=== PATIENT | male | born 1935 | race Hispanic/Latino ===

== ENCOUNTER 2018-10-25 10:16 | Outpatient (CLI) | payer MEDICARE ==
[2018-10-25 10:52] LABS: Anion Gap 19 mmol/L (10-20); BUN (Urea Nitrogen) 73 mg/dL (8.4-25.7); Calc. Creatinine Clearance 0 mL/min (70-130); Calcium 8.8 mg/dL (7.8-10.44); Carbon Dioxide 19 mmol/L (23-31); Chloride 104 mmol/L (98-107); Estimated GFR-MDRD 14; Glucose 113 mg/dL (83-110); Potassium 4.4 mmol/L (3.5-5.1); Sodium 138 mmol/L (136-145)
[2018-10-25 10:53] LABS: Bilirubin Negative (Negative); Blood, Urine Negative (Negative); Glucose, Urine (Dipstick) Negative (Negative); Leukocyte Negative (Negative); Nitrite Negative (Negative); Protein, Urine (Dipstick) 30 mg/dL (Neg-Trace); Urobilinogen 0.2 mg/dL (Less than 2)
[2018-10-25 10:59] LABS: Clarity Hazy (Clear)
[2018-10-25 11:00] LABS: Bacteria/HPF 1+ HPF (None Seen); RBC/HPF 0-3 HPF (0-3); Squamous Epithelial 0-3 HPF (0-3); WBC/HPF 0-3 HPF (0-3)
== END 2018-10-25 10:17 | disposition home or self-care (01) ==
LOC: MADLAB 10:16
PROVIDERS: ATTEND Family Medicine
DX: I50.9 Heart failure, unspecified (principal)
CPT/HCPCS: 80048; 81001; 87086

== ENCOUNTER 2018-10-31 15:27 | Inpatient (IN) | payer MEDICARE ==
[2018-10-31] MEDS ORDERED: cefTRIAXone\\ROCEPHIN 2 GM VIAL IVPB SCH (17:15)
[2018-10-31] MEDS: Senokot S 8.6-50 MG TAB PO SCH (21:27)
[2018-10-31] MEDS: Amiodarone 200 MG TAB PO SCH (21:27)
[2018-10-31] MEDS: Sucralfate 1 GM TAB PO SCH (21:27)
[2018-10-31] MEDS: Nystatin 500,000 UNITS/5 ML UDCUP SSW SCH (21:28)
[2018-10-31] MEDS: Apixaban 5 MG TAB PO SCH (21:28)
--- NOTE | 2018-11-01 00:38 | HP ---
PRIMARY CARE PHYSICIAN: Dr. Kristina Ennis. REASON FOR ADMISSION: For long time IV antibiotic and skilled rehabilitation secondary to bacteremia and new onset CHF with atrial fibrillation. HISTORY OF PRESENT ILLNESS: Mr. Cr Powell is an 83-year-old male who presented to the emergency room on the secondary to severe back pain. The patient had recently been discharged from the hospital due to a new onset CHF and atrial fibrillation on the . On admission, he was noted to have bandemia with elevated creatinine. He had blood cultures positive for methicillin sensitive Staph aureus. He was initially seen by ID specialist, Dr. Lucas, who put him on vancomycin and was subsequently transitioned to Rocephin [address] Lucas recommended IV Rocephin to be taking through 12/08. The patient had an extensive workup to look for primary focus including lumbar spine CT and echocardiogram, which were all unrevealing of the primary focus. The patient did have an Matos catheter placed for long-term IV antibiotics. His creatinine initially was 4.3, but dropped down by day of discharge to 3.43. He does have a history of anemia, and his hemoglobin was 8.2 by day of discharge, and hematocrit 25.7. The patient due to long-term antibiotic and physical deconditioning, was subsequently transferred to [facility] [place] for physical therapy. Upon evaluation of the patient today, he complains of back pain. will be staying with him throughout the visit due to language barrier. The patient and noted white streaking on his tongue and some cuts on his tongue and the patient complaining of dryness to his mouth today. He denies any chest pain. Denies any shortness of breath. Denies any nausea or vomiting. states he does have a history of chronic vomiting and this has been ongoing, but the sucralfate does help with this. The patient will follow up as an outpatient with building performance specialist, Dr. Moran and language instructor, Dr. Zee. PAST MEDICAL HISTORY: Hypertension, chronic kidney disease, systolic heart failure, atrial flutter status post WENDY cardioversion, gastritis. CODE STATUS: Full code. PAST SURGICAL HISTORY: Pacemaker placement. FAMILY HISTORY: Diabetes and hypertension. SOCIAL HISTORY: No tobacco, alcohol, or illicit drug use. The patient leaves to home with his , Karina who is his surrogate decision maker. ALLERGIES: NONE. CURRENT MEDICATIONS: 1. Amiodarone 200 b.i.d. 2. Coreg 12.5 b.i.d. 3. Aspirin 81 mg daily. 4. Eliquis 2.5 p.o. b.i.d. 5. Protonix 40 daily. 6. Lasix 20 b.i.d. 7. Rocephin 2 g IV piggyback daily through 12/08. 8. Sucralfate 1 g four times a day. 9. Senokot S one tablet b.i.d. REVIEW OF SYSTEMS: GENERAL: The patient denies any fever, nausea, or vomiting. Complains of weakness and lower back pain. HEENT: No nosebleeds. Complains of oral pain and white streaking to his tongue. CHEST: Denies chest pain, shortness of breath, palpitation, or dizziness. RESPIRATORY: Denies cough or wheezing. ABDOMEN: Denies abdominal pain or nausea. Positive for vomiting. Denies diarrhea. GENITOURINARY: Denies dysuria or hematuria. SKIN: Denies any blisters, sores, or rashes. NEUROLOGICAL: No focal deficits. PSYCH: Denies anxiety or depression. MUSCULOSKELETAL: Complains of lower back pain, gait instability. PHYSICAL EXAMINATION: VITAL SIGNS: Temperature 96.3, pulse 75, respirations 22, O2 saturation on room air 97, blood pressure 149/67. GENERAL: The patient is a very pleasant 83-year-old male, alert, awake, oriented x3. Cooperative, age appropriate. HEENT: PERRL. Poor dentition throughout. White plaques on his tongue. NECK: Supple. Symmetric. No lymphadenopathy. No JVD. No bruits. HEART: Regular rate and rhythm without murmurs, gallops, or rubs. Pacemaker site looks healthy. LUNGS: Clear to auscultation bilaterally. Good air expansion. ABDOMEN: Positive bowel sounds. Soft, nontender, nondistended. EXTREMITIES: No cyanosis, clubbing, or edema. SKIN: No additional open lesions. ASSESSMENT: 1. Bacteremia with methicillin-susceptible Staphylococcus aureus. 2. Physical debility. 3. Acute renal failure on chronic kidney disease stage 4. 4. Normocytic anemia. 5. Acute systolic heart failure with EF of 30% to 35%. 6. Atrial fibrillation, status post WENDY cardioversion. 7. Gastritis. 8. Hypertension. 9. Oral Candidiasis PLAN: The patient has been admitted to [facility] for skilled rehabilitation and gait strengthening and also for long-term IV antibiotic. We will continue Rocephin 2 g daily until 12/08, at the recommendation of ID specialist , Dr. Lucas. We will monitor CBC and BMP profile on a periodic basis. We will go schedule followup appointments with building performance specialist and language instructor as planned. We will monitor the patient closely for any hemodynamic instability. We will resume pain medicines with [place] and Tylenol as needed. We will start nystatin moldovan and spit for [address] the patient on Protonix for GI prophylaxis and he is already on Eliquis for anticoagulation. ESTIMATED LENGTH OF STAY: 4-5 weeks. DISPOSITION: Home. Job ID: [id number] MTDD
[2018-11-01] MEDS: HYDROcodone/Acetaminophen 10/325 mg Tablet PO PRN ×2 (02:15→09:38)
[2018-11-01 04:59] LABS: #Basophils 0.1 thou/uL (0.0-0.2); #Eosinphils 0.1 thou/uL (0.0-0.7); #Lymphocytes 0.9 thou/uL (1.20-3.40); #Monocytes 0.6 thou/uL (0.11-0.59); #Neutrophils 9.4 thou/uL (1.40-6.50); %Basophils 0.5 % (0.0-1.0); %Eosinophils 0.7 % (0.0-10.0); %Monocytes 5.5 % (0.0-10.0); %Neutrophils 85.3 % (42.0-75.0); Hemoglobin 8.1 g/dL (14.0-18.0); Mean Corpuscular HGB CONC 33.1 g/dL (32.0-36.0); Mean Corpuscular Hemoglobin 31.3 pg (27.0-31.0); Mean Corpuscular Volume 94.6 fL (78.0-98.0); Mean Platelet Volume 5.9 fL (7.4-10.4); Platelet Count 244 thou/uL (130-400); RBC Distribution Width 16.2 % (11.5-14.5); Red Blood Cell (RBC) Count 2.58 mill/uL (4.70-6.10); White Blood Cell (WBC) Count 11.1 thou/uL (4.8-10.8)
[2018-11-01 05:18] LABS: Anion Gap 16 mmol/L (10-20); BUN (Urea Nitrogen) 76 mg/dL (8.4-25.7); Calc. Creatinine Clearance 16 mL/min (70-130); Calcium 9.5 mg/dL (7.8-10.44); Carbon Dioxide 20 mmol/L (23-31); Chloride 108 mmol/L (98-107); Estimated GFR-MDRD 18; Glucose 108 mg/dL (83-110); Potassium 4.7 mmol/L (3.5-5.1); Sodium 139 mmol/L (136-145)
[2018-11-01] MEDS: Nystatin 500,000 UNITS/5 ML UDCUP SSW SCH ×4 (08:30→20:34)
[2018-11-01] MEDS: Senokot S 8.6-50 MG TAB PO SCH ×2 (08:30→20:34)
[2018-11-01] MEDS: Amiodarone 200 MG TAB PO SCH ×2 (08:30→20:33)
[2018-11-01] MEDS: Furosemide 20 MG TAB PO SCH ×2 (08:30→13:14)
[2018-11-01] MEDS: Carvedilol 6.25 MG TAB PO SCH ×2 (08:30→17:11)
[2018-11-01] MEDS: Sucralfate 1 GM TAB PO SCH ×4 (08:30→20:35)
[2018-11-01] MEDS: Apixaban 5 MG TAB PO SCH ×2 (08:30→20:34)
[2018-11-01] MEDS: Aspirin 81 mg Enteric Coated Tablet PO SCH (08:30)
[2018-11-01] MEDS ORDERED: Non-Formulary Item 1 EACH (Multivit-Min/Folic/Vit K/Lycop [Men's Multivitamin Tablet] 1 E PO SCH (09:00)
[2018-11-01] MEDS ORDERED: Multivitamin W/ Minerals 1 TAB PO SCH (09:30)
[2018-11-01] MEDS: cefTRIAXone\\ROCEPHIN 2 GM in Sodium Chloride 0.9% 100 ML IVPB SCH (11:21)
[2018-11-01] MEDS ORDERED: MINERAL OIL PO PRN ×2 (16:18→17:15)
[2018-11-01] MEDS: Ferrous Sulfate 325 MG TAB PO SCH (17:11)
[2018-11-01] MEDS: Ondansetron ODT 4 MG TAB PO PRN (23:48)
[2018-11-02] MEDS: HYDROcodone/Acetaminophen 10/325 mg Tablet PO PRN ×3 (06:21→21:23)
[2018-11-02] MEDS: Acetaminophen 325 MG TAB PO PRN (08:40)
[2018-11-02] MEDS: Nystatin 500,000 UNITS/5 ML UDCUP SSW SCH ×4 (08:41→21:15)
[2018-11-02] MEDS: Senokot S 8.6-50 MG TAB PO SCH ×2 (08:41→21:15)
[2018-11-02] MEDS: Ferrous Sulfate 325 MG TAB PO SCH ×2 (08:41→17:06)
[2018-11-02] MEDS: Furosemide 20 MG TAB PO SCH ×2 (08:41→13:11)
[2018-11-02] MEDS: Multivitamin W/ Minerals 1 TAB PO SCH (08:41)
[2018-11-02] MEDS: Aspirin 81 mg Enteric Coated Tablet PO SCH (08:41)
[2018-11-02] MEDS: Carvedilol 6.25 MG TAB PO SCH ×2 (08:41→17:06)
[2018-11-02] MEDS: Amiodarone 200 MG TAB PO SCH ×2 (08:42→21:14)
[2018-11-02] MEDS: Apixaban 5 MG TAB PO SCH ×2 (08:42→21:14)
[2018-11-02] MEDS: Sucralfate 1 GM TAB PO SCH ×4 (08:42→21:15)
[2018-11-02] MEDS: cefTRIAXone\\ROCEPHIN 2 GM in Sodium Chloride 0.9% 100 ML IVPB SCH (11:08)
[2018-11-02] MEDS: MINERAL OIL PO SCH (11:14)
[2018-11-02] MEDS ORDERED: Bisacodyl 10 MG SUPP PR SCH (16:15)
[2018-11-02] MEDS ORDERED: Fleet Enema 133 ML BOT FS PRN (17:44)
--- NOTE | 2018-11-02 19:33 | RAD ---
SUPINE ABDOMEN: 11/02/18 HISTORY: Constipation. Large amount of stool throughout the colon is consistent with a history of constipation. Nonspecific small bowel gas is seen without evidence of small bowel dilatation or obstruction. No mass effect or abnormal calcification. IMPRESSION: Prominent stool throughout the colon consistent with history of constipation. POS: NATHAN
[2018-11-03] MEDS: Ondansetron ODT 4 MG TAB PO PRN ×3 (00:09→20:19)
[2018-11-03] MEDS: HYDROcodone/Acetaminophen 10/325 mg Tablet PO PRN (06:18)
[2018-11-03] MEDS: Sucralfate 1 GM TAB PO SCH ×4 (07:25→21:00)
[2018-11-03] MEDS: Ferrous Sulfate 325 MG TAB PO SCH ×2 (08:35→16:45)
[2018-11-03] MEDS: Apixaban 5 MG TAB PO SCH ×2 (08:35→20:24)
[2018-11-03] MEDS: Nystatin 500,000 UNITS/5 ML UDCUP SSW SCH ×4 (08:35→20:15)
[2018-11-03] MEDS: Multivitamin W/ Minerals 1 TAB PO SCH (08:36)
[2018-11-03] MEDS: Furosemide 20 MG TAB PO SCH ×2 (08:36→13:48)
[2018-11-03] MEDS: Carvedilol 6.25 MG TAB PO SCH ×2 (08:36→16:44)
[2018-11-03] MEDS: Senokot S 8.6-50 MG TAB PO SCH ×2 (08:36→20:24)
[2018-11-03] MEDS: Aspirin 81 mg Enteric Coated Tablet PO SCH (08:37)
[2018-11-03] MEDS: Amiodarone 200 MG TAB PO SCH ×2 (08:37→20:23)
[2018-11-03] MEDS: cefTRIAXone\\ROCEPHIN 2 GM in Sodium Chloride 0.9% 100 ML IVPB SCH (11:25)
[2018-11-03] MEDS: Acetaminophen 325 MG TAB PO PRN (13:51)
[2018-11-03] MEDS: MINERAL OIL PO SCH (13:51)
[2018-11-04] MEDS: HYDROcodone/Acetaminophen 10/325 mg Tablet PO PRN ×2 (00:18→11:28)
[2018-11-04] MEDS: Acetaminophen 325 MG TAB PO PRN (05:24)
[2018-11-04] MEDS: Sucralfate 1 GM TAB PO SCH ×5 (08:40→20:16)
[2018-11-04] MEDS: Amiodarone 200 MG TAB PO SCH ×2 (08:40→20:12)
[2018-11-04] MEDS: Carvedilol 6.25 MG TAB PO SCH ×2 (08:40→17:11)
[2018-11-04] MEDS: Multivitamin W/ Minerals 1 TAB PO SCH (08:40)
[2018-11-04] MEDS: Aspirin 81 mg Enteric Coated Tablet PO SCH (08:40)
[2018-11-04] MEDS: Senokot S 8.6-50 MG TAB PO SCH ×2 (08:40→20:12)
[2018-11-04] MEDS: Apixaban 5 MG TAB PO SCH ×2 (08:40→20:13)
[2018-11-04] MEDS: Furosemide 20 MG TAB PO SCH ×2 (08:40→14:36)
[2018-11-04] MEDS: Ferrous Sulfate 325 MG TAB PO SCH ×2 (08:41→17:11)
[2018-11-04] MEDS: cefTRIAXone\\ROCEPHIN 2 GM in Sodium Chloride 0.9% 100 ML IVPB SCH (10:47)
[2018-11-04] MEDS: Ondansetron ODT 4 MG TAB PO PRN (12:21)
[2018-11-05] MEDS: HYDROcodone/Acetaminophen 10/325 mg Tablet PO PRN ×4 (01:27→21:43)
[2018-11-05] MEDS: Carvedilol 6.25 MG TAB PO SCH ×2 (08:13→17:15)
[2018-11-05] MEDS: Ferrous Sulfate 325 MG TAB PO SCH ×2 (08:13→17:14)
[2018-11-05] MEDS: Apixaban 5 MG TAB PO SCH ×2 (08:14→20:15)
[2018-11-05] MEDS: Sucralfate 1 GM TAB PO SCH ×4 (08:15→20:15)
[2018-11-05] MEDS: Aspirin 81 mg Enteric Coated Tablet PO SCH (08:16)
[2018-11-05] MEDS: Multivitamin W/ Minerals 1 TAB PO SCH (08:16)
[2018-11-05] MEDS: Furosemide 20 MG TAB PO SCH ×2 (08:16→14:04)
[2018-11-05] MEDS: Amiodarone 200 MG TAB PO SCH ×2 (08:16→20:15)
[2018-11-05] MEDS: Senokot S 8.6-50 MG TAB PO SCH ×2 (08:16→20:15)
[2018-11-05] MEDS: cefTRIAXone\\ROCEPHIN 2 GM in Sodium Chloride 0.9% 100 ML IVPB SCH (10:35)
[2018-11-05] MEDS: Ondansetron ODT 4 MG TAB PO PRN (12:11)
[2018-11-06] MEDS: Sucralfate 1 GM TAB PO SCH ×4 (07:52→20:49)
[2018-11-06] MEDS: Ferrous Sulfate 325 MG TAB PO SCH ×2 (08:42→16:59)
[2018-11-06] MEDS: Carvedilol 6.25 MG TAB PO SCH ×2 (08:42→16:59)
[2018-11-06] MEDS: Aspirin 81 mg Enteric Coated Tablet PO SCH (08:43)
[2018-11-06] MEDS: Furosemide 20 MG TAB PO SCH ×2 (08:43→13:35)
[2018-11-06] MEDS: Amiodarone 200 MG TAB PO SCH ×2 (08:43→20:50)
[2018-11-06] MEDS: Multivitamin W/ Minerals 1 TAB PO SCH (08:43)
[2018-11-06] MEDS: Apixaban 5 MG TAB PO SCH ×2 (08:43→20:50)
[2018-11-06] MEDS: Senokot S 8.6-50 MG TAB PO SCH ×2 (08:44→20:56)
[2018-11-06] MEDS: HYDROcodone/Acetaminophen 10/325 mg Tablet PO PRN ×3 (08:48→20:50)
[2018-11-06] MEDS: cefTRIAXone\\ROCEPHIN 2 GM in Sodium Chloride 0.9% 100 ML IVPB SCH (11:23)
[2018-11-06] MEDS: Ondansetron ODT 4 MG TAB PO PRN ×2 (13:35→20:50)
[2018-11-06] MEDS ORDERED: Polyethylene Glycol 3350 17 GM Packet PO SCH (14:15)
[2018-11-06 14:49] LABS: Bilirubin Negative (Negative); Blood, Urine Negative (Negative); Glucose, Urine (Dipstick) Negative (Negative); Leukocyte Negative (Negative); Nitrite Negative (Negative); Protein, Urine (Dipstick) 30 mg/dL (Neg-Trace); Urobilinogen 0.2 mg/dL (Less than 2)
[2018-11-06 14:52] LABS: Clarity Hazy (Clear)
[2018-11-06 14:53] LABS: Bacteria/HPF Rare-Few HPF (None Seen); RBC/HPF 0-3 HPF (0-3); Squamous Epithelial 0-3 HPF (0-3); Urine Culture Reflex No No; WBC/HPF 0-3 HPF (0-3)
[2018-11-06] MEDS ORDERED: Fleet Enema 133 ML BOT PR PRN (18:49)
--- NOTE | 2018-11-06 19:26 | RAD ---
SUPINE PORTABLE AP ABDOMINAL RADIOGRAPH: HISTORY: Fecal impaction. COMPARISON: 11/02/2018 FINDINGS: A large amount of retained fecal material is again seen within the colon, greatest in the region of t he rectum. Findings are similar to the prior exam. No definitive dilated loops of small bowel are s een. Vascular calcifications are seen. Degenerative changes are again noted in the spine. Upper ab domen and lung bases are excluded from view. IMPRESSION: Large amount of retained fecal material seen throughout the colon, consistent with the patient's hist ory of constipation. The findings are similar to the prior examination. POS: GREGORY
[2018-11-07] MEDS: Sucralfate 1 GM TAB PO SCH ×4 (08:33→20:36)
[2018-11-07] MEDS: Polyethylene Glycol 3350 17 GM Packet PO SCH (08:33)
[2018-11-07] MEDS: Apixaban 5 MG TAB PO SCH ×2 (08:33→20:35)
[2018-11-07] MEDS: Carvedilol 6.25 MG TAB PO SCH ×2 (08:33→16:58)
[2018-11-07] MEDS: Multivitamin W/ Minerals 1 TAB PO SCH (08:33)
[2018-11-07] MEDS: Ferrous Sulfate 325 MG TAB PO SCH ×2 (08:33→16:58)
[2018-11-07] MEDS: Furosemide 20 MG TAB PO SCH ×2 (08:33→13:52)
[2018-11-07] MEDS: Senokot S 8.6-50 MG TAB PO SCH ×2 (08:33→20:36)
[2018-11-07] MEDS: Aspirin 81 mg Enteric Coated Tablet PO SCH (08:34)
[2018-11-07] MEDS: Amiodarone 200 MG TAB PO SCH ×2 (08:34→20:35)
[2018-11-07] MEDS: cefTRIAXone\\ROCEPHIN 2 GM in Sodium Chloride 0.9% 100 ML IVPB SCH (11:01)
[2018-11-07] MEDS: Acetaminophen 325 MG TAB PO PRN (12:52)
[2018-11-07 12:55] LABS: #Basophils 0.1 thou/uL (0.0-0.2); #Eosinphils 0.1 thou/uL (0.0-0.7); #Lymphocytes 0.8 thou/uL (1.20-3.40); #Monocytes 0.5 thou/uL (0.11-0.59); #Neutrophils 6.7 thou/uL (1.40-6.50); %Eosinophils 0.9 % (0.0-10.0); %Lymphocytes 9.8 % (21.0-51.0); %Monocytes 6.3 % (0.0-10.0); Hemoglobin 9.2 g/dL (14.0-18.0); Mean Corpuscular HGB CONC 31.5 g/dL (32.0-36.0); Mean Corpuscular Hemoglobin 29.6 pg (27.0-31.0); Mean Corpuscular Volume 93.8 fL (78.0-98.0); Mean Platelet Volume 4.8 fL (7.4-10.4); Platelet Count 361 thou/uL (130-400); RBC Distribution Width 15.1 % (11.5-14.5); Red Blood Cell (RBC) Count 3.11 mill/uL (4.70-6.10); White Blood Cell (WBC) Count 8.2 thou/uL (4.8-10.8)
[2018-11-07 13:46] LABS: Anion Gap 18 mmol/L (10-20); BUN (Urea Nitrogen) 65 mg/dL (8.4-25.7); Calc. Creatinine Clearance 15 mL/min (70-130); Calcium 9.9 mg/dL (7.8-10.44); Carbon Dioxide 29 mmol/L (23-31); Chloride 94 mmol/L (98-107); Estimated GFR-MDRD 19; Glucose 151 mg/dL (83-110); Potassium 4.4 mmol/L (3.5-5.1); Sodium 137 mmol/L (136-145)
[2018-11-07] MEDS ORDERED: Fleet Enema 133 ML BOT PR SCH (19:00)
[2018-11-07] MEDS: Ondansetron ODT 4 MG TAB PO PRN (19:59)
[2018-11-07] MEDS: HYDROcodone/Acetaminophen 10/325 mg Tablet PO PRN (23:47)
[2018-11-08] MEDS: Ferrous Sulfate 325 MG TAB PO SCH ×2 (08:21→16:45)
[2018-11-08] MEDS: Furosemide 20 MG TAB PO SCH ×2 (08:21→14:27)
[2018-11-08] MEDS: Multivitamin W/ Minerals 1 TAB PO SCH (08:21)
[2018-11-08] MEDS: Apixaban 5 MG TAB PO SCH ×2 (08:21→20:40)
[2018-11-08] MEDS: Sucralfate 1 GM TAB PO SCH ×4 (08:21→20:41)
[2018-11-08] MEDS: Carvedilol 6.25 MG TAB PO SCH ×2 (08:21→16:45)
[2018-11-08] MEDS: Aspirin 81 mg Enteric Coated Tablet PO SCH (08:21)
[2018-11-08] MEDS: Amiodarone 200 MG TAB PO SCH ×2 (08:21→20:40)
[2018-11-08] MEDS: Senokot S 8.6-50 MG TAB PO SCH ×2 (08:21→20:41)
[2018-11-08] MEDS: Polyethylene Glycol 3350 17 GM Packet PO SCH (08:22)
[2018-11-08] MEDS: cefTRIAXone\\ROCEPHIN 2 GM in Sodium Chloride 0.9% 100 ML IVPB SCH (11:20)
[2018-11-08] MEDS: Acetaminophen 325 MG TAB PO PRN ×2 (11:24→19:50)
[2018-11-09] MEDS: Acetaminophen 325 MG TAB PO PRN (01:34)
[2018-11-09] MEDS: Apixaban 5 MG TAB PO SCH ×2 (08:19→21:41)
[2018-11-09] MEDS: Aspirin 81 mg Enteric Coated Tablet PO SCH (08:19)
[2018-11-09] MEDS: Multivitamin W/ Minerals 1 TAB PO SCH (08:19)
[2018-11-09] MEDS: Amiodarone 200 MG TAB PO SCH ×2 (08:19→21:42)
[2018-11-09] MEDS: Sucralfate 1 GM TAB PO SCH ×4 (08:19→21:42)
[2018-11-09] MEDS: Furosemide 20 MG TAB PO SCH ×2 (08:20→13:03)
[2018-11-09] MEDS: Ferrous Sulfate 325 MG TAB PO SCH ×3 (08:20→17:44)
[2018-11-09] MEDS: Carvedilol 6.25 MG TAB PO SCH ×2 (08:20→17:44)
[2018-11-09] MEDS: Polyethylene Glycol 3350 17 GM Packet PO SCH (08:21)
[2018-11-09] MEDS: Senokot S 8.6-50 MG TAB PO SCH (08:21)
[2018-11-09] MEDS: cefTRIAXone\\ROCEPHIN 2 GM in Sodium Chloride 0.9% 100 ML IVPB SCH (08:22)
[2018-11-09] MEDS: HYDROcodone/Acetaminophen 10/325 mg Tablet PO PRN ×3 (09:08→21:44)
[2018-11-09] MEDS: Ondansetron ODT 4 MG TAB PO PRN (14:11)
[2018-11-10] MEDS: Acetaminophen 325 MG TAB PO PRN ×2 (05:55→21:58)
[2018-11-10] MEDS: Sucralfate 1 GM TAB PO SCH ×4 (07:57→21:58)
[2018-11-10] MEDS: Ferrous Sulfate 325 MG TAB PO SCH ×2 (07:57→17:43)
[2018-11-10] MEDS: Carvedilol 6.25 MG TAB PO SCH ×2 (07:57→17:43)
[2018-11-10] MEDS: Aspirin 81 mg Enteric Coated Tablet PO SCH (09:00)
[2018-11-10] MEDS: Apixaban 5 MG TAB PO SCH ×2 (09:00→21:58)
[2018-11-10] MEDS: Multivitamin W/ Minerals 1 TAB PO SCH (09:00)
[2018-11-10] MEDS: Amiodarone 200 MG TAB PO SCH ×2 (09:00→21:58)
[2018-11-10] MEDS: Furosemide 20 MG TAB PO SCH (09:00)
[2018-11-10] MEDS: Polyethylene Glycol 3350 17 GM Packet PO SCH (09:01)
[2018-11-10] MEDS: HYDROcodone/Acetaminophen 10/325 mg Tablet PO PRN ×2 (10:25→17:45)
[2018-11-10] MEDS: cefTRIAXone\\ROCEPHIN 2 GM in Sodium Chloride 0.9% 100 ML IVPB SCH (10:26)
[2018-11-11] MEDS: Aspirin 81 mg Enteric Coated Tablet PO SCH (08:26)
[2018-11-11] MEDS: Carvedilol 6.25 MG TAB PO SCH ×2 (08:26→16:47)
[2018-11-11] MEDS: Amiodarone 200 MG TAB PO SCH ×2 (08:26→21:14)
[2018-11-11] MEDS: Multivitamin W/ Minerals 1 TAB PO SCH (08:27)
[2018-11-11] MEDS: Apixaban 5 MG TAB PO SCH ×2 (08:27→21:12)
[2018-11-11] MEDS: Sucralfate 1 GM TAB PO SCH ×4 (08:27→21:11)
[2018-11-11] MEDS: Ferrous Sulfate 325 MG TAB PO SCH ×2 (08:27→16:47)
[2018-11-11] MEDS: Furosemide 20 MG TAB PO SCH (08:27)
[2018-11-11] MEDS: Polyethylene Glycol 3350 17 GM Packet PO SCH (08:28)
[2018-11-11] MEDS: HYDROcodone/Acetaminophen 10/325 mg Tablet PO PRN (08:33)
[2018-11-11] MEDS: cefTRIAXone\\ROCEPHIN 2 GM in Sodium Chloride 0.9% 100 ML IVPB SCH (11:22)
[2018-11-11] MEDS: Senokot S 8.6-50 MG TAB PO PRN (15:27)
[2018-11-11] MEDS: Acetaminophen 325 MG TAB PO PRN (21:13)
[2018-11-12] MEDS: HYDROcodone/Acetaminophen 10/325 mg Tablet PO PRN ×2 (06:17→10:11)
[2018-11-12] MEDS: Ferrous Sulfate 325 MG TAB PO SCH ×2 (07:52→16:57)
[2018-11-12] MEDS: Amiodarone 200 MG TAB PO SCH ×2 (07:52→20:54)
[2018-11-12] MEDS: Multivitamin W/ Minerals 1 TAB PO SCH (07:52)
[2018-11-12] MEDS: Polyethylene Glycol 3350 17 GM Packet PO SCH (07:52)
[2018-11-12] MEDS: Furosemide 20 MG TAB PO SCH (07:53)
[2018-11-12] MEDS: Sucralfate 1 GM TAB PO SCH ×4 (07:53→20:55)
[2018-11-12] MEDS: Carvedilol 6.25 MG TAB PO SCH ×2 (07:53→16:57)
[2018-11-12] MEDS: Aspirin 81 mg Enteric Coated Tablet PO SCH (07:53)
[2018-11-12] MEDS: Apixaban 5 MG TAB PO SCH ×2 (07:55→20:54)
[2018-11-12] MEDS: Acetaminophen 325 MG TAB PO PRN ×2 (08:03→20:54)
[2018-11-12] MEDS: Senokot S 8.6-50 MG TAB PO PRN (10:11)
[2018-11-12] MEDS: cefTRIAXone\\ROCEPHIN 2 GM in Sodium Chloride 0.9% 100 ML IVPB SCH (11:26)
[2018-11-13] MEDS: HYDROcodone/Acetaminophen 10/325 mg Tablet PO PRN ×3 (00:56→23:45)
[2018-11-13] MEDS: Multivitamin W/ Minerals 1 TAB PO SCH (08:26)
[2018-11-13] MEDS: Apixaban 5 MG TAB PO SCH ×2 (08:26→20:28)
[2018-11-13] MEDS: Sucralfate 1 GM TAB PO SCH ×4 (08:26→20:29)
[2018-11-13] MEDS: Furosemide 20 MG TAB PO SCH (08:27)
[2018-11-13] MEDS: Ferrous Sulfate 325 MG TAB PO SCH ×2 (08:27→17:14)
[2018-11-13] MEDS: Amiodarone 200 MG TAB PO SCH ×2 (08:27→20:28)
[2018-11-13] MEDS: Polyethylene Glycol 3350 17 GM Packet PO SCH (08:27)
[2018-11-13] MEDS: Carvedilol 6.25 MG TAB PO SCH ×2 (08:27→17:14)
[2018-11-13] MEDS: Aspirin 81 mg Enteric Coated Tablet PO SCH (08:27)
[2018-11-13] MEDS: cefTRIAXone\\ROCEPHIN 2 GM in Sodium Chloride 0.9% 100 ML IVPB SCH (11:25)
[2018-11-14] MEDS: Acetaminophen 325 MG TAB PO PRN (02:12)
[2018-11-14] MEDS: HYDROcodone/Acetaminophen 10/325 mg Tablet PO PRN ×3 (03:51→21:50)
[2018-11-14 05:09] LABS: #Basophils 0.1 thou/uL (0.0-0.2); #Eosinphils 0.1 thou/uL (0.0-0.7); #Monocytes 0.6 thou/uL (0.11-0.59); %Basophils 1.5 % (0.0-1.0); %Eosinophils 1.3 % (0.0-10.0); %Lymphocytes 21.9 % (21.0-51.0); %Monocytes 11.8 % (0.0-10.0); %Neutrophils 63.5 % (42.0-75.0); Hemoglobin 7.4 g/dL (14.0-18.0); Mean Corpuscular HGB CONC 32.3 g/dL (32.0-36.0); Mean Corpuscular Hemoglobin 30.3 pg (27.0-31.0); Mean Corpuscular Volume 93.7 fL (78.0-98.0); Mean Platelet Volume 4.8 fL (7.4-10.4); Platelet Count 203 thou/uL (130-400); RBC Distribution Width 14.7 % (11.5-14.5); Red Blood Cell (RBC) Count 2.43 mill/uL (4.70-6.10); White Blood Cell (WBC) Count 4.7 thou/uL (4.8-10.8)
[2018-11-14 05:22] LABS: Anion Gap 15 mmol/L (10-20); BUN (Urea Nitrogen) 54 mg/dL (8.4-25.7); CRP (Inflammatory) 0.82 mg/dL (= or < 0.5); Calc. Creatinine Clearance 15 mL/min (70-130); Calcium 9.8 mg/dL (7.8-10.44); Carbon Dioxide 25 mmol/L (23-31); Chloride 103 mmol/L (98-107); Estimated GFR-MDRD 19; Glucose 107 mg/dL (83-110); Sodium 138 mmol/L (136-145)
[2018-11-14] MEDS: Aspirin 81 mg Enteric Coated Tablet PO SCH (08:34)
[2018-11-14] MEDS: Amiodarone 200 MG TAB PO SCH ×2 (08:34→21:50)
[2018-11-14] MEDS: Multivitamin W/ Minerals 1 TAB PO SCH (08:34)
[2018-11-14] MEDS: Ferrous Sulfate 325 MG TAB PO SCH ×2 (08:34→17:11)
[2018-11-14] MEDS: Carvedilol 6.25 MG TAB PO SCH ×2 (08:34→17:14)
[2018-11-14] MEDS: Apixaban 5 MG TAB PO SCH ×2 (08:35→21:50)
[2018-11-14] MEDS: Polyethylene Glycol 3350 17 GM Packet PO SCH (08:35)
[2018-11-14] MEDS: Sucralfate 1 GM TAB PO SCH ×4 (08:35→21:50)
[2018-11-14] MEDS: Furosemide 20 MG TAB PO SCH (08:35)
[2018-11-14] MEDS: cefTRIAXone\\ROCEPHIN 2 GM in Sodium Chloride 0.9% 100 ML IVPB SCH (11:47)
[2018-11-14] MEDS: Ondansetron ODT 4 MG TAB PO PRN ×2 (12:19→18:39)
[2018-11-14] MEDS ORDERED: Sodium Chloride 0.9% 1,000 ML ONE (13:16)
[2018-11-14] MEDS ORDERED: Furosemide 40 MG/4 ML VIAL SLOW IVP SCH (18:00)
[2018-11-15] MEDS: HYDROcodone/Acetaminophen 10/325 mg Tablet PO PRN ×2 (04:56→23:38)
[2018-11-15] MEDS: Polyethylene Glycol 3350 17 GM Packet PO SCH (08:18)
[2018-11-15] MEDS: Ferrous Sulfate 325 MG TAB PO SCH ×2 (08:18→17:41)
[2018-11-15] MEDS: Carvedilol 6.25 MG TAB PO SCH ×2 (08:19→17:41)
[2018-11-15] MEDS: Furosemide 20 MG TAB PO SCH (08:19)
[2018-11-15] MEDS: Amiodarone 200 MG TAB PO SCH (08:19)
[2018-11-15] MEDS: Sucralfate 1 GM TAB PO SCH ×4 (08:19→21:28)
[2018-11-15] MEDS: Multivitamin W/ Minerals 1 TAB PO SCH (08:19)
[2018-11-15] MEDS: Apixaban 5 MG TAB PO SCH ×2 (08:19→21:28)
[2018-11-15] MEDS: Aspirin 81 mg Enteric Coated Tablet PO SCH (08:19)
[2018-11-15] MEDS: cefTRIAXone\\ROCEPHIN 2 GM in Sodium Chloride 0.9% 100 ML IVPB SCH (11:42)
[2018-11-15] MEDS: Acetaminophen 325 MG TAB PO PRN (18:10)
[2018-11-16] MEDS: Polyethylene Glycol 3350 17 GM Packet PO SCH (08:33)
[2018-11-16] MEDS: Apixaban 5 MG TAB PO SCH ×2 (08:35→20:58)
[2018-11-16] MEDS: Multivitamin W/ Minerals 1 TAB PO SCH (08:35)
[2018-11-16] MEDS: Amiodarone 200 MG TAB PO SCH (08:35)
[2018-11-16] MEDS: Sucralfate 1 GM TAB PO SCH ×4 (08:35→20:59)
[2018-11-16] MEDS: Aspirin 81 mg Enteric Coated Tablet PO SCH (08:35)
[2018-11-16] MEDS: Furosemide 20 MG TAB PO SCH (08:35)
[2018-11-16] MEDS: Ferrous Sulfate 325 MG TAB PO SCH ×2 (08:35→17:04)
[2018-11-16] MEDS: Carvedilol 6.25 MG TAB PO SCH ×2 (08:35→17:04)
[2018-11-16] MEDS: HYDROcodone/Acetaminophen 10/325 mg Tablet PO PRN ×2 (08:40→23:34)
[2018-11-16] MEDS: cefTRIAXone\\ROCEPHIN 2 GM in Sodium Chloride 0.9% 100 ML IVPB SCH (11:36)
[2018-11-16 14:23] VITALS: BMI 19.8
[2018-11-16] MEDS: Acetaminophen 325 MG TAB PO PRN (20:58)
[2018-11-16] MEDS: Senokot S 8.6-50 MG TAB PO PRN (20:59)
[2018-11-16] MEDS: Ondansetron ODT 4 MG TAB PO PRN (20:59)
[2018-11-17] MEDS: Polyethylene Glycol 3350 17 GM Packet PO SCH (08:31)
[2018-11-17] MEDS: Sucralfate 1 GM TAB PO SCH ×4 (08:31→20:07)
[2018-11-17] MEDS: Aspirin 81 mg Enteric Coated Tablet PO SCH (08:31)
[2018-11-17] MEDS: Ferrous Sulfate 325 MG TAB PO SCH ×2 (08:31→17:21)
[2018-11-17] MEDS: Multivitamin W/ Minerals 1 TAB PO SCH (08:31)
[2018-11-17] MEDS: Carvedilol 6.25 MG TAB PO SCH ×2 (08:31→17:21)
[2018-11-17] MEDS: Amiodarone 200 MG TAB PO SCH (08:31)
[2018-11-17] MEDS: Apixaban 5 MG TAB PO SCH ×2 (08:31→20:06)
[2018-11-17] MEDS: Furosemide 20 MG TAB PO SCH (08:32)
[2018-11-17] MEDS: HYDROcodone/Acetaminophen 10/325 mg Tablet PO PRN ×2 (08:36→18:53)
[2018-11-17] MEDS: Acetaminophen 325 MG TAB PO PRN (11:18)
[2018-11-17] MEDS: cefTRIAXone\\ROCEPHIN 2 GM in Sodium Chloride 0.9% 100 ML IVPB SCH (11:19)
--- NOTE | 2018-11-17 15:40 | RAD ---
LUMBAR SPINE 2 VIEWS: HISTORY: Low back pain FINDINGS: Comparison is made with exam of 10/25/2018. Degenerative changes and dextroscoliosis of the lumbar spine are again seen. No acute fracture, sublu xation or bony destruction is identified. Degenerative changes in the SI joints are again seen, left greater than right.
[2018-11-18] MEDS: Acetaminophen 325 MG TAB PO PRN ×2 (04:19→10:42)
[2018-11-18] MEDS: Carvedilol 6.25 MG TAB PO SCH ×2 (09:49→17:47)
[2018-11-18] MEDS: Apixaban 5 MG TAB PO SCH ×2 (09:49→20:21)
[2018-11-18] MEDS: Sucralfate 1 GM TAB PO SCH ×4 (09:49→20:21)
[2018-11-18] MEDS: Polyethylene Glycol 3350 17 GM Packet PO SCH (09:49)
[2018-11-18] MEDS: Amiodarone 200 MG TAB PO SCH (09:49)
[2018-11-18] MEDS: Multivitamin W/ Minerals 1 TAB PO SCH (09:50)
[2018-11-18] MEDS: Furosemide 20 MG TAB PO SCH (09:50)
[2018-11-18] MEDS: Ferrous Sulfate 325 MG TAB PO SCH ×2 (09:50→17:44)
[2018-11-18] MEDS: Aspirin 81 mg Enteric Coated Tablet PO SCH (09:50)
[2018-11-18] MEDS: cefTRIAXone\\ROCEPHIN 2 GM in Sodium Chloride 0.9% 100 ML IVPB SCH (09:56)
[2018-11-18] MEDS: HYDROcodone/Acetaminophen 10/325 mg Tablet PO PRN (17:44)
[2018-11-19] MEDS: HYDROcodone/Acetaminophen 10/325 mg Tablet PO PRN ×2 (03:26→08:43)
[2018-11-19] MEDS: Ferrous Sulfate 325 MG TAB PO SCH ×2 (08:42→17:12)
[2018-11-19] MEDS: Furosemide 20 MG TAB PO SCH (08:42)
[2018-11-19] MEDS: Carvedilol 6.25 MG TAB PO SCH ×2 (08:42→17:11)
[2018-11-19] MEDS: Multivitamin W/ Minerals 1 TAB PO SCH (08:42)
[2018-11-19] MEDS: Aspirin 81 mg Enteric Coated Tablet PO SCH (08:43)
[2018-11-19] MEDS: Apixaban 5 MG TAB PO SCH ×2 (08:43→20:39)
[2018-11-19] MEDS: Sucralfate 1 GM TAB PO SCH ×4 (08:43→20:40)
[2018-11-19] MEDS: Amiodarone 200 MG TAB PO SCH (08:43)
[2018-11-19] MEDS: Polyethylene Glycol 3350 17 GM Packet PO SCH (08:45)
[2018-11-19] MEDS: cefTRIAXone\\ROCEPHIN 2 GM in Sodium Chloride 0.9% 100 ML IVPB SCH (11:28)
[2018-11-19] MEDS: Acetaminophen 325 MG TAB PO PRN ×2 (14:28→20:38)
[2018-11-19] MEDS: Senokot S 8.6-50 MG TAB PO PRN (14:30)
[2018-11-19] MEDS: Ondansetron ODT 4 MG TAB PO PRN (17:40)
[2018-11-20] MEDS: HYDROcodone/Acetaminophen 10/325 mg Tablet PO PRN ×2 (04:56→17:32)
[2018-11-20 06:01] LABS: #Eosinphils 0.1 thou/uL (0.0-0.7); #Lymphocytes 1.1 thou/uL (1.20-3.40); #Monocytes 0.5 thou/uL (0.11-0.59); #Neutrophils 1.6 thou/uL (1.40-6.50); %Basophils 1.3 % (0.0-1.0); %Eosinophils 1.9 % (0.0-10.0); %Lymphocytes 32.9 % (21.0-51.0); %Monocytes 14.3 % (0.0-10.0); %Neutrophils 49.7 % (42.0-75.0); Hemoglobin 11.5 g/dL (14.0-18.0); Mean Corpuscular HGB CONC 32.3 g/dL (32.0-36.0); Mean Corpuscular Hemoglobin 29.3 pg (27.0-31.0); Mean Corpuscular Volume 90.8 fL (78.0-98.0); Mean Platelet Volume 4.9 fL (7.4-10.4); Platelet Count 122 thou/uL (130-400); RBC Distribution Width 13.5 % (11.5-14.5); Red Blood Cell (RBC) Count 3.92 mill/uL (4.70-6.10); White Blood Cell (WBC) Count 3.3 thou/uL (4.8-10.8)
[2018-11-20 06:21] LABS: ALT (SGPT) 31 U/L (8-55); AST (SGOT) 26 U/L (5-34); Albumin 3.4 g/dL (3.4-4.8); Alkaline Phosphatase 83 U/L (40-150); Anion Gap 16 mmol/L (10-20); BUN (Urea Nitrogen) 53 mg/dL (8.4-25.7); Bilirubin, Total 0.3 mg/dL (0.2-1.2); CRP (Inflammatory) 0.76 mg/dL (= or < 0.5); Calc. Creatinine Clearance 15 mL/min (70-130); Calcium 10.3 mg/dL (7.8-10.44); Carbon Dioxide 26 mmol/L (23-31); Chloride 101 mmol/L (98-107); Estimated GFR-MDRD 20; Globulin 2.9 g/dL (2.4-3.5); Glucose 110 mg/dL (83-110); Protein, Total 6.3 g/dL (5.8-8.1); Sodium 138 mmol/L (136-145)
[2018-11-20] MEDS: Carvedilol 6.25 MG TAB PO SCH ×2 (07:12→17:26)
[2018-11-20] MEDS: Sucralfate 1 GM TAB PO SCH ×4 (07:12→21:16)
[2018-11-20] MEDS: Ferrous Sulfate 325 MG TAB PO SCH ×2 (07:12→17:26)
[2018-11-20] MEDS: Polyethylene Glycol 3350 17 GM Packet PO SCH (09:05)
[2018-11-20] MEDS: Multivitamin W/ Minerals 1 TAB PO SCH (09:06)
[2018-11-20] MEDS: Amiodarone 200 MG TAB PO SCH (09:07)
[2018-11-20] MEDS: Apixaban 5 MG TAB PO SCH ×2 (09:07→21:16)
[2018-11-20] MEDS: Aspirin 81 mg Enteric Coated Tablet PO SCH (09:07)
[2018-11-20] MEDS: Furosemide 20 MG TAB PO SCH (09:07)
[2018-11-20] MEDS: Acetaminophen 325 MG TAB PO PRN (09:11)
[2018-11-20] MEDS: cefTRIAXone\\ROCEPHIN 2 GM in Sodium Chloride 0.9% 100 ML IVPB SCH (11:09)
[2018-11-20] MEDS ORDERED: Sterile Water Irrigation 250 ML BOT ONE (11:17)
[2018-11-20] MEDS: Lidocaine 5% Patch TD SCH (11:51)
[2018-11-20] MEDS: Ondansetron ODT 4 MG TAB PO PRN (17:26)
[2018-11-21] MEDS: Lidocaine Patch Removal 1 EACH TOP SCH (00:43)
[2018-11-21] MEDS: HYDROcodone/Acetaminophen 10/325 mg Tablet PO PRN ×2 (05:25→16:42)
[2018-11-21] MEDS: Aspirin 81 mg Enteric Coated Tablet PO SCH (08:22)
[2018-11-21] MEDS: Furosemide 20 MG TAB PO SCH (08:22)
[2018-11-21] MEDS: Sucralfate 1 GM TAB PO SCH ×4 (08:22→21:38)
[2018-11-21] MEDS: Multivitamin W/ Minerals 1 TAB PO SCH (08:22)
[2018-11-21] MEDS: Amiodarone 200 MG TAB PO SCH (08:22)
[2018-11-21] MEDS: Ferrous Sulfate 325 MG TAB PO SCH ×2 (08:22→16:42)
[2018-11-21] MEDS: Carvedilol 6.25 MG TAB PO SCH ×2 (08:22→16:42)
[2018-11-21] MEDS: Apixaban 5 MG TAB PO SCH ×2 (08:22→21:38)
[2018-11-21] MEDS: Polyethylene Glycol 3350 17 GM Packet PO SCH (08:23)
[2018-11-21] MEDS: Lidocaine 5% Patch TD SCH (12:27)
[2018-11-21] MEDS: cefTRIAXone\\ROCEPHIN 2 GM in Sodium Chloride 0.9% 100 ML IVPB SCH (12:27)
[2018-11-22] MEDS: Lidocaine Patch Removal 1 EACH TOP SCH (00:35)
[2018-11-22] MEDS: Ondansetron ODT 4 MG TAB PO PRN ×2 (04:02→11:34)
[2018-11-22] MEDS: HYDROcodone/Acetaminophen 10/325 mg Tablet PO PRN ×2 (04:14→08:40)
[2018-11-22 06:44] VITALS: BP 104/55; TEMP 97.5
[2018-11-22] MEDS: Polyethylene Glycol 3350 17 GM Packet PO SCH (07:52)
[2018-11-22] MEDS: Ferrous Sulfate 325 MG TAB PO SCH (07:52)
[2018-11-22] MEDS: Multivitamin W/ Minerals 1 TAB PO SCH (07:52)
[2018-11-22] MEDS: Aspirin 81 mg Enteric Coated Tablet PO SCH (07:53)
[2018-11-22] MEDS: Apixaban 5 MG TAB PO SCH (07:53)
[2018-11-22] MEDS: Sucralfate 1 GM TAB PO SCH ×2 (07:53→11:34)
[2018-11-22] MEDS: Furosemide 20 MG TAB PO SCH (07:53)
[2018-11-22] MEDS: Amiodarone 200 MG TAB PO SCH (07:53)
[2018-11-22] MEDS: Carvedilol 6.25 MG TAB PO SCH (07:53)
[2018-11-22] MEDS: Lidocaine 5% Patch TD SCH (11:34)
[2018-11-22] MEDS: cefTRIAXone\\ROCEPHIN 2 GM in Sodium Chloride 0.9% 100 ML IVPB SCH (11:34)
--- NOTE | 2018-11-23 08:21 | DIS ---
DATE OF ADMISSION: 10/31/2018 DATE OF DISCHARGE: 11/22/2018 PRIMARY CARE PHYSICIAN: DISCHARGING PHYSICIAN: Angie Schroeder MD DISCHARGE DIAGNOSES: 1. Methicillin-susceptible Staphylococcus aureus bacteremia. 2. Gait instability. 3. Acute renal failure. 4. Normocytic anemia, status post transfusion. 5. Congestive heart failure ejection fraction of 30% to 35%. 6. Atrial fibrillation, status post WENDY cardioversion. 7. Chronic lower back pain. 8. Chronic constipation. 9. Hypertension. DISCHARGE MEDICATIONS: 1. Coreg 12.5 b.i.d. 2. Amiodarone 200 daily. 3. Eliquis 2.5 b.i.d. 4. Aspirin 81 daily. 5. [place] one tab q.4 hours p.r.n. pain. 6. Tylenol 650 q.4 p.r.n. pain. 7. Rocephin 2 g daily. 8. Montelukast . 9. Ferrous sulfate 325 b.i.d. 10. Lasix 20 mg daily. 11. Lidocaine patch to the back daily, remove every 12 hours. 12. Zofran 4 mg q.6 p.r.n. nausea. 13. MiraLAX 17 g daily. 14. Protonix 40 mg daily. 15. Sucralfate 1 g p.o. a.c. and at bedtime. DISCHARGE DISPOSITION: To home with . DISCHARGE INSTRUCTIONS: Follow up with PCP within 2 weeks. Follow up with Dr. Buckley on November 23. Follow up with Dr. Moran on January 15. Follow up with Dr. Zee on November 12. Follow up with Dr. Stafford on December 13. Follow up with Dr. Lucas on December 07. DIET: Low-sodium, heart healthy, fluid restriction diet. The patient discharged to home healthcare after IV antibiotics completion. HOSPITAL COURSE: Mr. Cr Powell is a very pleasant 83-year-old male who was noted to have a new onset CHF and atrial fibrillation in October 2018. The patient was initially admitted and treated and subsequently discharged back to home, but presented to the emergency room a couple of days later with weakness, bandemia, and elevation in his creatinine. The patient was noted to have MSSA bacteremia. He was seen by ID specialist, Dr. Lucas who recommended to have Rocephin 2 g daily until December 08. The patient had an extensive workup to look for the primary focus, where none was found. The patient was also noted to have history of anemia and during hospitalization, his hemoglobin drops to below 8 and the patient admitted to be transfused. He received 3 units of blood on November 14, and he tolerated this nicely. Today, upon discharge, his hemoglobin was 11.5 and hematocrit 35.6. During hospitalization, the patient was able to follow up with life care planner, Dr. Moran and progressively improved. Gait improved, he was able to participate in physical therapy , and on the day of discharge, he was able to ambulate about 400 feet with a rolling walker. During hospitalization here, the patient complained of severe lower back pain. X-ray was done, which was nonsignificant. The patient was started on lidocaine 5% patch . Hospitalization was also complicated by constipation during the initial course of the stay there and it was treated with multiple laxatives and stool softeners . Patient has now completed IV antibiotics, but due to his discharge him home to get daily outpatient IV antibiotics. The patient was subsequently accepted to for outpatient care. Nurses were notified of after IV antibiotics. This patient was subsequently discharged to back home in stable condition with family members. Discharge vital signs; temperature 97.5, pulse 69, respirations 14, O2 saturation 97% on room air, and blood pressure 104/55. During hospitalization, the patient complained of some sharp discomfort to the pacemaker site. Denied any chest pain, denied any nausea, vomiting, and the decision was made to follow up with arrhythmia doctor, Dr. Buckley, the patient was given an appointment tomorrow. Job ID: [id number]
== END 2018-11-22 13:50 | disposition home or self-care (01) | DRG 871 ==
LOC: MADMS 16:04
PROVIDERS: ADMIT Family Medicine; ATTEND Family Medicine
PROC: 30233N1 Transfusion of Nonautologous Red Blood Cells into Peripheral Vein, Percutaneous Approach (ICD-10-PCS; principal; 2018-11-14)
DX: R78.81 Bacteremia (principal); I50.21 Acute systolic (congestive) heart failure; N17.9 Acute kidney failure, unspecified; N18.4 Chronic kidney disease, stage 4 (severe); I13.0 Hypertensive heart and chronic kidney disease with heart failure and stage 1 through stage 4 chronic kidney disease, or unspecified chronic kidney disease; B37.0 Candidal stomatitis; B95.61 Methicillin susceptible Staphylococcus aureus infection as the cause of diseases classified elsewhere; R53.81 Other malaise; D64.9 Anemia, unspecified; I48.91 Unspecified atrial fibrillation; K29.70 Gastritis, unspecified, without bleeding; R26.81 Unsteadiness on feet; G89.29 Other chronic pain; M54.5 Low back pain; K59.09 Other constipation; Z95.0 Presence of cardiac pacemaker; Z79.82 Long term (current) use of aspirin
CPT/HCPCS: 36415; 36430; 72100; 74018; 80048; 80053; 81001; 85014; 85018; 85025; 86140; 86850; 86900; 86901; J0696; J1642; J1940; J3490; J7050; P9016; Q0162